=== PATIENT | female | born 1995 | race Caucasian/White ===

== ENCOUNTER 2017-01-31 23:04 | Emergency (ER) | payer SELFPAY ==
[~2017-01-31] VITALS: Ht 160 cm; Wt 92.0 kg
[2017-01-31 23:10] VITALS: Ht 160 cm; Wt 92.0 kg
[2017-02-01] MEDS ORDERED: ONDANSETRON (ODT) 4 MG TAB ODT STA (01:34)
[2017-02-01] MEDS ORDERED: HYDROCODONE/APAP (5/325) TAB PO ONE (02:00)
--- NOTE | 2017-02-01 02:39 | RADRPT ---
PROCEDURE: RIGHT KNEE - 3 VIEWS CLINICAL INDICATION: 21-year-old female with right knee pain. TECHNIQUE: AP, lateral and oblique view of the right knee were obtained. The images reviewed on a PACS workstation. COMPARISON: None. FINDINGS: The bones appear intact, with no evidence of fracture, erosion, demineralization, or dislocation. Th e alignment of the femorotibial and patellofemoral joints appears normal. No joint space narrowing i s seen. IMPRESSION: Unremarkable examination of the right knee. .Satya Blackwood MD, MD Date Time Electronically viewed and signed by .Satya Blackwood MD, MD on 02/01/2017 02:39 .M/
--- NOTE | 2017-02-01 02:40 | RADRPT ---
PROCEDURE: LEFT HAND - 3 VIEWS CLINICAL INDICATION: 21-year-old female with left hand pain. TECHNIQUE: AP, lateral and oblique views of the left hand were obtained. The images reviewed on a PACS workstation. COMPARISON: Left wrist obtained concurrently. FINDINGS: The bones of the hand appear intact, with no evidence of fracture, dislocation, or subluxation. The joint spaces are preserved. Bone mineralization is within normal limits. No radiopaque foreign body is seen. IMPRESSION: Unremarkable left hand radiographs. .Satya Blackwood MD, MD Date Time Electronically viewed and signed by .Satya Blackwood MD, MD on 02/01/2017 02:40 .M/
--- NOTE | 2017-02-01 02:41 | RADRPT ---
PROCEDURE: LEFT WRIST - 4 VIEWS CLINICAL INDICATION: 21-year-old female with left wrist pain. TECHNIQUE: AP, lateral, scaphoid and oblique views of the left wrist were performed. The images re viewed on a PACS workstation. COMPARISON: Left hand obtained concurrently. FINDINGS: No evidence of fracture, dislocation, or subluxation is seen. The bones appear well mineralized. The joint spaces are well preserved. No radiopaque foreign body is seen. IMPRESSION: Unremarkable exam of the left wrist radiograph. .Satya Blackwood MD, MD Date Time Electronically viewed and signed by .Satya Blackwood MD, MD on 02/01/2017 02:41 .M/
--- NOTE | 2017-02-01 02:41 | RADRPT ---
PROCEDURE: LEFT KNEE - 3 VIEWS CLINICAL INDICATION: 21-year-old female with left knee pain. TECHNIQUE: AP, lateral and oblique view of the left knee were obtained. The images reviewed on a PACS workstation. COMPARISON: None. FINDINGS: The bones appear intact, with no evidence of fracture, erosion, demineralization, or dislocation. Th e alignment of the femorotibial and patellofemoral joints appears normal. No joint space narrowing i s seen. IMPRESSION: Unremarkable examination of the left knee. .Satya Blackwood MD, MD Date Time Electronically viewed and signed by .Satya Blackwood MD, MD on 02/01/2017 02:41 .M/
[2017-02-01] MEDS ORDERED: NAPR-260 PO (02:44)
[2017-02-01 02:59] VITALS: BP 10/70; PULSE 82; RESP 16
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
== END 2017-02-01 03:00 | disposition home or self-care (01) ==
LOC: FTE 23:04
DX: S69.92XA Unspecified injury of left wrist, hand and finger(s), initial encounter (principal); S89.91XA Unspecified injury of right lower leg, initial encounter; V49.40XA Driver injured in collision with unspecified motor vehicles in traffic accident, initial encounter
CPT/HCPCS: 73562

== ENCOUNTER 2017-05-20 20:48 | Emergency (ER) | payer OTHER ==
[~2017-05-20] VITALS: Ht 157.5 cm; Wt 47.0 kg
[~2017-05-20 20:48] MED LIST: NAPR-260 PO
[2017-05-20 20:50] VITALS: Ht 157.5 cm; Wt 47.0 kg
[2017-05-20] MEDS ORDERED: HYDR-3011 PO (21:16)
[2017-05-20] MEDS ORDERED: ELIM TOP (21:16)
--- NOTE | 2017-05-20 21:20 | ERD ---
ER Documentation Chief Complaint Date/Time DATE: 05/20/17 TIME: 21:18 Chief Complaint scaterred body rashes w/ itching HPI 21-year-old female presents to emergency department for complaints of rash all over the body and itching that started 2 months ago. Patient just recently new that she was exposed to scabies. Patient is worried about it and wants to be treated for this. Patient's boyfriend is having the same symptoms and she sleeps with him at home. Patient did not take any medications to help with symptoms. ROS All systems reviewed and are negative except as per history of present illness. Medications Home Meds Active Scripts Hydroxyzine Hcl* (Hydroxyzine Hcl*) 25 Mg Tablet, 25 MG PO Q8H Y for ITCHING, # 30 TAB Prov:EYAD CABRERA NP 05/20/17 Permethrin* (Elimite*) 5% Cr, 1 APPLIC TOP ONCE, #1 TUB apply on neck down, leave on for 8-12 hrs, rinse afterwards, repeat in 1 week Prov:EYAD CABRERA NP 05/20/17 Naproxen* (Naprosyn*) 500 Mg Tablet, 500 MG PO BID Y for PAIN AND/OR INFLAMMATION, #30 TAB Prov:ADITYA SALINAS PA-C 02/01/17 Allergies Allergies: Coded Allergies: No Known Allergy (Unverified , 01/31/17) PMhx/Soc Medical and Surgical Hx: pt denies Medical Hx, pt denies Surgical Hx Hx Alcohol Use: No Hx Substance Use: No Hx Tobacco Use: No FmHx Family History: No coronary disease, No diabetes, No other Physical Exam Vitals Vital Signs Date Time Temp Pulse Resp B/P Pulse Ox O2 Delivery O2 Flow Rate FiO2 05/20/17 20:50 97.8 96 20 115/79 98 Physical Exam GENERAL: The patient is well developed and appropriate for usual state of health, in no apparent distress. CHEST: Clear to auscultation bilaterally. There are no rales, wheezes or rhonchi. HEART: Regular rate and rhythm. No murmurs, clicks, rubs or gallops. No S3 or S4. ABDOMEN: Soft, nontender and nondistended. Good bowel sounds. No rebound or guarding. No gross peritonitis. No gross organomegaly or masses. No Hogan sign or McBurney point tenderness. BACK: No midline or flank tenderness. EXTREMITIES: Equal pulses bilaterally. There is no peripheral clubbing, cyanosis or edema. No focal swelling or erythema. Full range of motion. Grossly neurovascularly intact. NEURO: Alert and oriented. Cranial nerves 2-12 intact. Motor strength in all 4 extremities with 5/5 strength. Sensation grossly intact. Normal speech and gait. SKIN: Some maculopapular rash noted in the right upper arm, no other rashes noted. No burrowing noted. There is no apparent rash or petechia. The skin is warm and dry. HEMATOLOGIC AND LYMPHATIC: There is no evidence of excessive bruising or lymphedema. No gross cervical, axillary, or inguinal lymphadenopathy. Procedures/MDM Medical decision making: Patient's rash is nonspecific at this time, I doubt that this is scabies but patient is requesting treatment for this. Patient will be given permethrin, was given hydroxyzine for itching. No suspicion of any contagious rash at this time. No symptoms of any MRSA infection, coagulopathies.No symptoms of anaphylactic shock. No symptoms of sepsis. Patient was advised to follow-up with primary care doctor in 2-3 days reevaluation symptoms. Patient was advised to return to emergency department for new worsening symptoms. Departure Diagnosis: Primary Impression: Rash Condition: Stable Patient Instructions: Self-Care for Skin Rashes EYAD CABRERA NP May 20, 2017 21:20
== END 2017-05-20 21:16 | disposition home or self-care (01) ==
LOC: E/R 20:48
DX: R21 Rash and other nonspecific skin eruption (principal)
CPT/HCPCS: 99283